=== PATIENT | male | born 2000 | race Caucasian/White ===

== ENCOUNTER 2024-10-01 13:41 | Emergency (ER) | payer SELFPAY ==
[~2024-10-01] VITALS: Ht 167.6 cm; Wt 82.0 kg
[2024-10-01 13:46] VITALS: O2SAT 97
[2024-10-01 14:24] VITALS: BP 153/42; PULSE 48; RESP 16; TEMP 98.4; O2SAT 100
[2024-10-01] MEDS ORDERED: TOPUD MT (16:38)
[2024-10-01] MEDS ORDERED: AMOX-494 MT (16:38)
[2024-10-01] MEDS ORDERED: IBUP-1523 MT (16:38)
== END 2024-10-01 16:56 | disposition home or self-care (01) ==
LOC: ER 13:41
DX: J03.90 Acute tonsillitis, unspecified (principal); I10 Essential (primary) hypertension
CPT/HCPCS: 99283